=== PATIENT | male | born 1930 | race Caucasian/White ===

== ENCOUNTER 2018-10-12 05:38 | Emergency (ER) | payer OTHER ==
[~2018-10-12] VITALS: Ht 165.1 cm; Wt 58.3 kg
[2018-10-12 05:58] VITALS: BP 161/79
[2018-10-12 06:04] LABS: GLUCOSE,POINT OF CARE 194 MG/DL (70-110)
== END 2018-10-12 06:22 | disposition left against medical advice (07) ==
LOC: EMS 05:41
DX: R51 Headache (principal); Z53.21 Procedure and treatment not carried out due to patient leaving prior to being seen by health care provider